=== PATIENT | female | born 1990 | race Two or more races ===

== ENCOUNTER 2024-03-01 02:25 | Emergency (ER) | payer OTHER ==
[~2024-03-01] VITALS: Ht 165.1 cm; Wt 84.1 kg
[2024-03-01 03:00] LABS: Urine Bacteria None Seen /hpf (None Seen)
[2024-03-01 03:10] LABS: Lymphocytes # (auto) 1.9 10 ^3/uL (0.4-5.4); Mean Corpuscular Volume 71.2 fL (80.0-100.0); Neutrophils % (auto) 71.2 % (37.0-80.0)
[2024-03-01 03:11] LABS: Basophils # (auto) 0 10 ^3/uL (0-0.2); Basophils % (auto) 0.5 % (0.0-2.0); Eosinophils # (auto) 0.2 10 ^3/uL (0-0.8); Eosinophils % (auto) 2.4 % (0.0-7.0); Hematocrit 36.1 % (36.0-46.0); Hemoglobin 11.8 g/dL (12.2-16.2); Mean Corpuscular Hemoglobin 23.2 pg (28.0-32.0); Mean Corpuscular Hgb Conc. 32.6 g/dL (32.0-36.0); Monocytes # (auto) 0.7 10 ^3/uL (0-1.3); Monocytes % (auto) 6.9 % (0.0-12.0); Platelet Count (auto) 214 10^3/uL (140-450); Red Blood Cells 5.06 10^6/uL (4.0-5.20); Red Cell Distribution Width 15.8 % (11.8-14.3); White Blood Cell 9.8 10^3/uL (4.4-10.8)
[2024-03-01 03:23] LABS: Urine Blood 3+ /uL (Negative); Urine Clarity Turbid (Clear); Urine Color Light-Brown (Yellow); Urine Protein, UAD TRACE (Negative); Urine Specific Gravity 1.011 (1.001-1.035); Urine Urobilinogen Normal (Negative); Urine WBC 8 /hpf (0 - 5); Urine pH 6.5 (5.0-9.0)
[2024-03-01 03:26] LABS: Chloride 108 mmol/L (98-107); Potassium 4.1 mmol/L (3.5-5.1); Sodium 139 mmol/L (136-145)
[2024-03-01 03:27] LABS: Anion Gap 5 (5-15); Carbon Dioxide 26 mmol/L (20-30)
[2024-03-01 03:32] LABS: Glucose 106 mg/dL (74-106)
[2024-03-01 04:00] LABS: Blood Urea Nitrogen < 5 mg/dL (9-23)
[2024-03-01 04:45] VITALS: BP 114/79; PULSE 92; TEMP 97.8
[2024-03-01] MEDS: HYDROcodone-ACET 10/325MG TAB PO ONE (04:45)
[2024-03-01 04:47] VITALS: RESP 20; O2SAT 98
[2024-03-01] MEDS ORDERED: HYDR-4072 PO (04:52)
[2024-03-01] MEDS ORDERED: CIPR-173 PO (04:52)
== END 2024-03-01 06:27 | disposition home or self-care (01) ==
LOC: ER 02:25
DX: N39.0 Urinary tract infection, site not specified (principal); N93.9 Abnormal uterine and vaginal bleeding, unspecified; N20.0 Calculus of kidney; Z88.0 Allergy status to penicillin
CPT/HCPCS: 36415; 74176; 80048; 81001; 81025; 84702; 85025